=== PATIENT | male | born 1955 | race Caucasian/White ===

== ENCOUNTER → 2017-11-29 | Outpatient (CLI) | payer OTHER ==
[2014-02-05 23:02] VITALS: BP 170/94
[~2017-11-29] MED LIST: HYDR-971 PO; SULF1TAB24 PO; TAMS0.4C97 PO
--- NOTE | 2017-11-29 13:53 | RAD ---
EXAM: Lumbar spine, 5 views. HISTORY: Pain. COMPARISON: None. FINDINGS: 5 views of the lumbar spine are obtained. There is minimal lumbar levocurvature. There is no listhesis. The vertebral bodies are normal in height. There is endplate remodeling and facet arthropathy at multiple levels. IMPRESSION: 1. Multilevel degenerative change within the lumbar spine. 2. No acute osseous finding. Electronically signed by: She Queen MD (11/29/2017 1:50 PM) [id number]
== END | disposition home or self-care (01) ==
LOC: PMG 10:51
PROVIDERS: ATTEND Physician Assistant Medical
DX: M47.896 Other spondylosis, lumbar region (principal); M12.88 Other specific arthropathies, not elsewhere classified, other specified site
CPT/HCPCS: 72110